=== PATIENT | female | born 1970 | race Two or more races ===

== ENCOUNTER 2023-05-25 20:15 | Emergency (ER) | payer OTHER ==
[~2023-05-25] VITALS: Ht 165.1 cm; Wt 97.7 kg
[2023-05-25 20:23] VITALS: RESP 18
[2023-05-25 20:40] LABS: BASOPHILS # (AUTO) 0.1 X10'3 (0-0.2); BASOPHILS % (AUTO) 1.4 % (0-1); EOSINOPHILS # (AUTO) 0.2 X10'3 (0-0.9); EOSINOPHILS % (AUTO) 3.1 % (0-6); HEMATOCRIT 37.9 % (35.0-45.0); HEMOGLOBIN 13.2 g/dl (12.0-16.0); LYMPHOCYTES # (AUTO) 2.9 X10'3 (1.1-4.8); LYMPHOCYTES % (AUTO) 38.5 % (21-51); MEAN CORPUSCULAR HGB CONC 34.8 g/dL (33.0-36.5); MONOCYTES # (AUTO) 0.5 X10'3 (0-0.9); MONOCYTES % (AUTO) 6.4 % (2-12); NEUTROPHILS # (AUTO) 3.8 X10'3 (1.8-7.7); NEUTROPHILS % (AUTO) 50.6 % (42-75); PLATELET COUNT 246 X10'3 (140-440); RED BLOOD COUNT 4.13 X10'6 (4.20-5.60); RED CELL DISTRIBUTION WIDTH 12.8 % (11.5-14.5); WHITE BLOOD COUNT 7.4 X10'3 (4.5-11.0)
[2023-05-25 21:01] LABS: ALANINE AMINOTRANSFERASE 29 U/L (12-78); ALBUMIN 3.5 G/DL (3.4-5.0); ALBUMIN/GLOBULIN RATIO 1.1 (1.1-1.5); ALKALINE PHOSPHATASE 84 IU/L (46-116); ANION GAP 7 (8-16); ASPARTATE AMINO TRANSFERASE 19 U/L (10-37); BILIRUBIN,TOTAL 0.4 MG/DL (0.1-1.0); BLOOD UREA NITROGEN 15 MG/DL (7-18); BUN/CREATININE RATIO 15.6 (10.0-20.0); CALCIUM 8.7 MG/DL (8.5-10.1); CHLORIDE 107 MMOL/L (99-107); CREATININE 0.96 MG/DL (0.40-0.90); GLUCOSE 109 MG/DL (70-104); POTASSIUM 3.7 MMOL/L (3.5-5.1); SODIUM 140 MMOL/L (135-145); TOTAL CARBON DIOXIDE 25.8 MMOL/L (24-32); TOTAL PROTEIN 6.8 G/DL (6.4-8.2); eCRCL 60 ML/MIN; eGFR 61 ML/MIN
[2023-05-25 21:02] LABS: PRO BRAIN NATRIURETIC PEPTIDE 159 PG/ML (0-125)
[2023-05-25] MEDS ORDERED: famotidine 20mg tablet PO ONE (22:40)
[2023-05-25] MEDS ORDERED: aspirin 325mg tablet PO ONE (22:40)
[2023-05-25] MEDS ORDERED: acetaminophen 325mg tablet PO ONE (22:40)
[2023-05-25] MEDS ORDERED: LORazepam 1 MG tablet PO ONE (22:40)
[2023-05-25 22:47] VITALS: BP 165/92; PULSE 60; TEMP 98.6; O2SAT 98
[2023-05-25] MEDS ORDERED: HYDR25CA PO (23:00)
== END 2023-05-25 23:26 | disposition home or self-care (01) ==
LOC: ER 20:16
DX: R00.2 Palpitations (principal); R07.89 Other chest pain; Z56.3 Stressful work schedule
CPT/HCPCS: 36415; 71045; 80053; 83880; 84484; 85025; 93005; 99285

== ENCOUNTER 2023-10-17 00:29 | Emergency (ER) | payer OTHER ==
[~2023-10-17] VITALS: Ht 167.6 cm; Wt 100.0 kg
[~2023-10-17 00:29] MED LIST: HYDR25CA PO
[2023-10-17] MEDS ORDERED: HYDROcodone/acetaminophen 5mg/325mg tablet PO ONE (04:10)
[2023-10-17] MEDS ORDERED: acetaminophen 325mg tablet PO ONE (04:10)
[2023-10-17] MEDS ORDERED: ketorolac trometh inj. 60 MG/2 ML VIAL IM ONE (04:10)
[2023-10-17] MEDS ORDERED: ondansetron 4mg rapidly disintigrating tab PO ONE (04:10)
[2023-10-17] MEDS ORDERED: HYDR-3965 PO (04:12)
[2023-10-17 04:36] VITALS: BP 178/85; PULSE 80; RESP 18; TEMP 98.6; O2SAT 99
== END 2023-10-17 04:37 | disposition home or self-care (01) ==
LOC: ER 00:30
DX: S82.832A Other fracture of upper and lower end of left fibula, initial encounter for closed fracture (principal); X58.XXXA Exposure to other specified factors, initial encounter; Y93.89 Activity, other specified; Y92.89 Other specified places as the place of occurrence of the external cause; Y99.8 Other external cause status
CPT/HCPCS: 29515; 73610; 96372; 99284; J1885

== ENCOUNTER 2023-12-19 21:19 | Emergency (ER) | payer OTHER ==
[~2023-12-19] VITALS: Ht 170.2 cm; Wt 102.3 kg
[2023-12-19 21:23] VITALS: TEMP 98.4
[2023-12-19] MEDS ORDERED: ketorolac trometh. 30mg/ml inj. IM ONE (22:55)
[2023-12-19 23:00] VITALS: BP 123/61; PULSE 68; RESP 14; O2SAT 98
[2023-12-19] MEDS: cyclobenzaprine 10mg tablet PO ONE (23:04)
[2023-12-19] MEDS: oxyCODONE/APAP 10/325mg tablet PO ONE (23:04)
[2023-12-19] MEDS: ketorolac tromethamine 15mg/ml inj. IM ONE (23:05)
[2023-12-19] MEDS ORDERED: HYDR-3973 PO (23:32)
[2023-12-19] MEDS ORDERED: CYCL-1 PO (23:32)
== END 2023-12-20 00:18 | disposition home or self-care (01) ==
LOC: ER 21:20
DX: G89.29 Other chronic pain (principal); M54.59 Other low back pain; I10 Essential (primary) hypertension; Z79.899 Other long term (current) drug therapy
CPT/HCPCS: 96372; 99284; J1885

== ENCOUNTER 2024-10-06 07:52 | Day surgery (SDC) | payer OTHER ==
[2024-10-06] VITALS (12 sets, daily range): BP systolic 110–141; BP diastolic 56–86; PULSE 56–75; RESP 9–18; TEMP 97.9; O2SAT 95–98
[~2024-10-06] VITALS: Ht 170.2 cm; Wt 103.8 kg
[2024-10-06] MEDS: ceFAZolin 2gm in dextrose, iso 50 ML IV ONE (05:30)
[~2024-10-06 07:52] MED LIST changes: +GABA-1405 PO; -HYDR25CA PO; +LISI20TA28 PO; +LORA-269 PO; +SERT-434 PO; +TRAZ-256 PO
[2024-10-06] MEDS ORDERED: bacitracin 15gm ointment TP ONE (08:17)
[2024-10-06] MEDS ORDERED: BUPIVAcaine 2.5mg/ml inj 50ml vial (contains preservative) ONE (08:17)
[2024-10-06] MEDS ORDERED: morphine 2 MG/ML inj. syringe IV PRN ×2 (08:40→10:50)
[2024-10-06] MEDS ORDERED: ringers solution, lacted 1,000 ML IV SCH ×2 (08:40→10:50)
[2024-10-06] MEDS ORDERED: ondansetron/PF 4mg/2ml inj IV PRN ×2 (08:40→10:50)
[2024-10-06] MEDS ORDERED: meperidine/PF 25mg/ml syringe IV PRN ×5 (08:40→10:50)
[2024-10-06] MEDS ORDERED: labetalol 20mg/4ml (5mg/ml) syringe IV PRN ×2 (08:40→10:50)
[2024-10-06] MEDS ORDERED: morphine 4 MG/ML inj SYRINge IV PRN ×2 (08:40→10:50)
[2024-10-06] MEDS ORDERED: proCHLORperazine 10 MG/2 ml inj IV PRN ×2 (08:40→10:50)
[2024-10-06] MEDS ORDERED: enalaprilat dihydrate 2.5mg/2ml vial IV PRN ×2 (08:40→10:50)
[2024-10-06] MEDS: famotidine 20mg tablet PO ONE (08:57)
[2024-10-06] MEDS: ringers solution, lacted 1,000 ML IV SCH (08:59)
[2024-10-06 09:02] LABS: BASOPHILS # (AUTO) 0.1 X10'3 (0-0.2); BASOPHILS % (AUTO) 1.5 % (0-1); EOSINOPHILS # (AUTO) 0.1 X10'3 (0-0.9); LYMPHOCYTES % (AUTO) 32.1 % (21-51); MEAN CORPUSCULAR HEMOGLOBIN 32.8 PG (27.0-31.0); MEAN CORPUSCULAR HGB CONC 35.3 g/dL (33.0-36.5); MEAN CORPUSCULAR VOLUME 92.7 FL (78-98); MEAN PLATELET VOLUME 8.2 FL (7.4-10.4); MONOCYTES # (AUTO) 0.6 X10'3 (0-0.9); MONOCYTES % (AUTO) 9.7 % (2-12); NEUTROPHILS # (AUTO) 3.4 X10'3 (1.8-7.7); NEUTROPHILS % (AUTO) 54.7 % (42-75); PRE OP HEMATOCRIT 39.2 % (35.0-45.0); PRE OP HEMOGLOBIN 13.8 g/dL (12.0-16.0); PRE OP PLATELET COUNT 265 X10'3 (140-440); PRE OP WHITE BLOOD COUNT 6.2 10'3 (4.8-10.8); RED BLOOD COUNT 4.22 X10'6 (4.20-5.60); RED CELL DISTRIBUTION WIDTH 13.1 % (11.5-14.5)
[2024-10-06 09:21] LABS: ALANINE AMINOTRANSFERASE 33 U/L (12-78); ALBUMIN 3.8 G/DL (3.4-5.0); ALKALINE PHOSPHATASE 91 IU/L (46-116); ANION GAP 9 (8-16); ASPARTATE AMINO TRANSFERASE 25 U/L (10-37); BILIRUBIN,TOTAL 0.8 MG/DL (0.1-1.0); BLOOD UREA NITROGEN 9 MG/DL (7-18); BUN/CREATININE RATIO 10.2 (10.0-20.0); CALCIUM 9.1 MG/DL (8.5-10.1); CHLORIDE 106 MMOL/L (99-107); CREATININE 0.88 MG/DL (0.40-0.90); GLUCOSE 98 MG/DL (70-104); POTASSIUM 3.4 MMOL/L (3.5-5.1); SODIUM 141 MMOL/L (135-145); TOTAL CARBON DIOXIDE 26.5 MMOL/L (24-32); TOTAL PROTEIN 7.6 G/DL (6.4-8.2); eCRCL 69 ML/MIN; eGFR 66 ML/MIN
[2024-10-06 09:43] LABS: BILIRUBIN,URINE NEGATIVE (Neg); CLARITY,URINE CLEAR (Clear); COLOR,URINE YELLOW (Yellow); GLUCOSE, URINE NEGATIVE (Neg); KETONES,URINE NEGATIVE (Neg); LEUKOCYTE ESTERASE ,URINE NEGATIVE (Neg); NITRITES, URINE NEGATIVE (Neg); OCCULT BLOOD,URINE TRACE-INTACT (Neg); PROTEIN,URINE NEGATIVE (Neg); UROBILINOGEN,URINE 0.2 E.U/dL (0.2-1.0)
[2024-10-06 09:48] LABS: UA COLLECTION TYPE CLN CATCH MIDSTREAM
[2024-10-06 09:51] LABS: BACTERIA,URINE NONE SEEN /HPF (Neg); MUCUS STRANDS NONE SEEN /LPF (Neg); RBC,URINE 0-2 /HPF (0-2); SQUAMOUS EPITHELIAL CELL,UR NONE SEEN /LPF (FEW); WBC,URINE 0-4 /HPF (0-4)
[2024-10-06] MEDS ORDERED: sevoflurane 250ml liquid IH ONE (10:00)
[2024-10-06] MEDS ORDERED: MIDAZolam 1 MG/ML 5ML VIAL ONE (10:06)
[2024-10-06] MEDS ORDERED: fentaNYL/PF 50MCG/1 ML 2ML syringe ONE ×2 (10:06→10:38)
[2024-10-06] MEDS ORDERED: ROPIVAcaine 0.5% (5mg/ml) 30ml vial ONE (10:07)
[2024-10-06] MEDS ORDERED: propofol inj 20 ML IV ONE (10:20)
[2024-10-06] MEDS ORDERED: ondansetron/PF 4mg/2ml inj ONE (11:53)
[2024-10-06] MEDS: meperidine/PF 25mg/ml syringe IV PRN (12:35)
== END 2024-10-06 14:12 | disposition home or self-care (01) ==
LOC: PAS 07:52
PROVIDERS: ATTEND Podiatrist Foot & Ankle Surgery
DX: T84.84XA Pain due to internal orthopedic prosthetic devices, implants and grafts, initial encounter (principal); S86.312A Strain of muscle(s) and tendon(s) of peroneal muscle group at lower leg level, left leg, initial encounter; S93.332A Other subluxation of left foot, initial encounter; M25.472 Effusion, left ankle; F32.A Depression, unspecified; F41.9 Anxiety disorder, unspecified; Z87.442 Personal history of urinary calculi; Z88.8 Allergy status to other drugs, medicaments and biological substances; J45.909 Unspecified asthma, uncomplicated; M47.816 Spondylosis without myelopathy or radiculopathy, lumbar region; M18.12 Unilateral primary osteoarthritis of first carpometacarpal joint, left hand; G89.18 Other acute postprocedural pain; M19.022 Primary osteoarthritis, left elbow; E66.9 Obesity, unspecified; Z68.34 Body mass index [BMI] 34.0-34.9, adult; M19.071 Primary osteoarthritis, right ankle and foot; G47.30 Sleep apnea, unspecified; X58.XXXA Exposure to other specified factors, initial encounter; Y93.89 Activity, other specified; Y92.89 Other specified places as the place of occurrence of the external cause; Y99.8 Other external cause status; Y83.1 Surgical operation with implant of artificial internal device as the cause of abnormal reaction of the patient, or of later complication, without mention of misadventure at the time of the procedure; M65.872 Other synovitis and tenosynovitis, left ankle and foot; Z79.899 Other long term (current) drug therapy; Z98.890 Other specified postprocedural states
CPT/HCPCS: 20680; 27675; 28200; 36415; 64445; 64447; 73600; 80053; 81001; 82948; 85025; A6223; J0690; J1100; J2003; J2175; J2250; J2405; J2704; J2795; J3010; J7030; J7120; Z7506; Z7508; Z7512; 76000; A4215; A4618; A6449; A7000; J3490

== ENCOUNTER 2025-05-01 09:07 | Outpatient (CLI) | payer OTHER, MEDICAID ==
--- NOTE | 2025-05-01 12:47 | RADIOLOGY REPORT ---
EXAM: MR MRI LOWER EXTREMITY RIGHT CLINICAL INDICATION: PAIN IN R KNEE, STRESS FRACTURE OF RIGHT TIBIA, INITIAL ENCOUNTER COMPARISON: None TECHNIQUE: Multiplanar, multisequence MRI of the right tibia-fibula (lower leg) was performed without intravenous contrast. Contralateral leg is included on some of the sequences. Contrast: None INTERPRETATION: Bones: There is no fracture or bone marrow edema. There is no marrow replacing lesion. Soft tissues: Mild edema in the lateral gastrocnemius muscle. There is no muscle atrophy. There is no soft tissue mass or fluid collection. Mild nonspecific medial subcutaneous edema. Contralateral lower extremity is included on some of the sequences and is grossly unremarkable. IMPRESSION: 1. No evidence of acute fracture in the right leg. 2. Mild muscle strain involving the lateral head of the gastrocnemius. No tendon or muscle tear.
== END 2025-05-01 23:59 | disposition home or self-care (01) ==
LOC: MRI02 09:07
PROVIDERS: ATTEND Family Medicine Sports Medicine
DX: S86.811A Strain of other muscle(s) and tendon(s) at lower leg level, right leg, initial encounter (principal); M84.361A Stress fracture, right tibia, initial encounter for fracture; S83.261A Peripheral tear of lateral meniscus, current injury, right knee, initial encounter; M25.561 Pain in right knee; M77.9 Enthesopathy, unspecified; E66.9 Obesity, unspecified; R60.0 Localized edema
CPT/HCPCS: 73718

== ENCOUNTER 2025-08-16 14:01 | Outpatient (CLI) | payer OTHER, MEDICAID ==
--- NOTE | 2025-08-16 15:15 | RADIOLOGY REPORT ---
CLINICAL HISTORY: PAIN IN LEFT KNEE COMPARISON: None. TECHNIQUE: Multisequence multiplanar MRI images of the left knee were obtained without contrast. FINDINGS: Cruciate ligaments: ACL and PCL are intact. Extensor mechanism: Quadriceps mechanism and patellar tendon are intact. Collateral ligaments: Medial and lateral collateral ligaments are intact and otherwise unremarkable. Menisci: There is blunting of the free edge at the body/anterior horn junction of the medial meniscus, may be due to free edge fraying or small free edge tear. Blunting at the free edge of the body of the lateral meniscus also noted, possible free edge fraying or small free edge tear in the appropriate clinical setting. There is also mild intrasubstance degeneration at the body of the lateral meniscus. Cartilage: Chondral fissuring/fibrillation in the lateral patellar facet near the median ridge with adjacent subchondral cystic change. Chondral thinning, fraying, and mild fissuring at the weight-bearing zones of the medial and lateral femoral condyles. Bones: No acute fracture or focal marrow contusion. Joint fluid: Moderate joint effusion visualized in the suprapatellar recess with mild synovitis mid areas of focal protrusion of fatty tissue into the suprapatellar recess consistent with a mild degree of lipoma arborescens. Other: No other significant findings. IMPRESSION: 1. 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 2. Blunting of the free edge at the body / anterior horn junction of the medial meniscus, likely free edge fraying, although small free edge tear could also have a similar appearance. 3. Mild blunting of the free edge of the body of the lateral meniscus, also likely due to Free edge fraying, although small free edge tear could also have a similar appearance. 4. Tricompartmental chondromalacia as described above, with focal grade 3 changes in the patella and associated subchondral cystic change.
== END 2025-08-16 23:59 | disposition home or self-care (01) ==
LOC: MRI02 14:01
PROVIDERS: ATTEND Family Medicine Sports Medicine
DX: M17.12 Unilateral primary osteoarthritis, left knee (principal); M25.562 Pain in left knee; M25.462 Effusion, left knee
CPT/HCPCS: 73721